=== PATIENT | female | born 1945 | race Caucasian/White ===

== ENCOUNTER → 2022-05-14 | Outpatient (CLI) | payer MEDICARE ==
[~2022-05-14] MED LIST: ALPRAZOLAM0.25 MG PO; AMLODIPINE BESYL5 MG PO; BENAZEPRIL HCL10 MG PO; CYCLOBENZAPRINE5 MG PO; LEVOTHYROXINE75 MCG PO; OXYBUTYNIN CHLOR5 MG PO; ULTRAM50 MG PO
== END ==
LOC: DX 10:41
PROVIDERS: ATTEND Nurse Practitioner Adult Health
DX: M85.88 Other specified disorders of bone density and structure, other site (principal)
CPT/HCPCS: 77080